=== PATIENT | male | born 1955 | race African-American/Black ===

== ENCOUNTER 2018-09-27 06:54 | Day surgery (SDC) | payer OTHER ==
--- OUTSIDE RECORDS SUMMARY | 2018-09-27 06:57 | XMS REPORT ---
:1955 Author Care Team Providers Name Role Phone HUSSEIN FORD MD Urologist [phone] LARA JOE MD Cotton Ginner Helper [phone] Allergies Code Code System Name Reaction Severity Status Onset NKDA Medications Name Status Start Date Stop Date atenolol 50 mg-chlorthalidone 25 mg tablet Active Not available TAKE 1 TABLET BY MOUTH ONCE A DAY atorvastatin 20 mg tablet Active Not available TAKE 1 TABLET BY MOUTH EVERY DAY Cialis 10 mg tablet Completed 11/10/2016 Cialis 20 mg tablet Active Not available Take 1 tablet every day by oral route. duloxetine 60 mg capsule,delayed release Active Not available TAKE ONE CAPSULE BY MOUTH EVERY DAY esomeprazole magnesium 40 mg capsule,delayed release Active Not available one capsule twice daily fluticasone 50 mcg/actuation nasal spray,suspension Active Not available 2 sprays each nosrtil once daily prn glimepiride 2 mg tablet Active Not available TAKE 1 TABLET TWICE A DAY hydrocortisone 2.5 % topical ointment Active Not available apply daily as needed Kenalog 40 mg/mL suspension for injection Completed 01/07/2018 Take 40 mg as needed by injection route as needed for 1 day. lisinopril 20 mg tablet Active Not available TAKE 1 TABLET TWICE A DAY meloxicam 15 mg tablet Active Not available metformin 500 mg tablet Active Not available TAKE 1 TABLET TWICE A DAY quetiapine 25 mg tablet Active Not available TAKE 1 TABLET EVERY DAY NEEDED ranitidine 150 mg tablet Active Not available TAKE 1 TABLET BY MOUTH EVERY DAY Restasis 0.05 % eye drops in a dropperette Active Not available 1 drop each eye twice a day Problems Name Status Onset Date Source Type 2 Diabetes Mellitus Active 07/18/2016 Hyperlipidemia Active 07/18/2016 Major Depressive Disorder Active 07/18/2016 Hypertensive Disorder Active 07/18/2016 Gastroesophageal Reflux Disease Active 07/18/2016 Primary Erectile Dysfunction Active 07/18/2016 Procedures Date Name Performed by 10/19/1996 Back Surgery Information not available Colonoscopy Information not available Notes: 1 year ago approximately. 11/10/2016 Electrocardiogram [facility] [address] [place] [address] (Work Place) Lab Results Date Name Specimen Result Interpretation Description Value Range Status Address 09/04/2017 CMP, Serum or Alt 26 U/L 0-55 [place] Plasma U/L Family Practice Laboratory: [address] [place] [address], [place] Ast 22 U/L 5-34 [place] U/L Family Practice Laboratory: [address] [place] [address], [place] Bun 11.5 8.4-2 [place] mg/dL 5.7 Family mg/dL Practice Laboratory: [address] [place] [address], [place] Alk Phos 70 40-15 [place] unit/L 0 Family unit/ Practice L Laboratory: [address] High Glucose 212 70-99 [place] mg/dL mg/dL Family Practice Laboratory: [address] Albumin 4.0 3.5-5 [place] g/dL .0 Family g/dL Practice Laboratory: [address] Creatinine 1.07 0.72- [place] mg/dL 1.25 Family mg/dL Practice Laboratory: [address] eGFR >60 >60 [place] Non- mL/min mL/mi Family Somali /1.73m n/1.7 Practice 2 3m2 Laboratory: [address] Total 0.5 0.2-1 [place] Bilirubin mg/dL .2 Family mg/dL Practice Laboratory: [address] eGFR - >60 >60 [facility] [place] Somali mL/min mL/mi Family /1.73m n/1.7 Practice 2 3m2 Laboratory: [address] Sodium 137 136-1 [place] mEq/L 45 Family mEq/L Practice Laboratory: [address] Potassium 3.8 3.5-5 [place] mEq/L .1 Family mEq/L [facility] [address] [facility] [facility] Chloride 101 98-10 [place] mmol/L 7 Family mmol/ Practice L Laboratory: [address] Total Protein 7.3 6.4-8 [place] g/dL .3 Family g/dL Practice Laboratory: [address] Calcium 9.5 8.8-1 [place] mg/dL 0.0 Family mg/dL Practice Laboratory: [address] [place] [address], [place] Co2 25.9 23.0- [place] mmol/L 31.0 Family mmol/ Practice L Laboratory: [address] Anion Gap 10 [place] calc Family Practice Laboratory: [address] 09/04/2017 Lipid Panel, Serum Hdl 49 40-60 [place] mg/dL mg/dL Family Practice Laboratory: [address] Triglyceride 106 0-149 [place] mg/dL mg/dL Family Practice Laboratory: [address] VLDL Calc. 21 [place] mg/dL Family Practice Laboratory: [address] cholesterol/HD 3.8 [place] L Ratio mg/dL [facility] [address] non-HDL 137 0-160 [place] Cholesterol mg/dL mg/dL Family Calc. Practice Laboratory: [address] Cholesterol 186 0-199 [place] mg/dL mg/dL Family Practice Laboratory: [address] LDL Calc. 116 0-130 [place] mg/dL mg/dL [facility] [address] 09/04/2017 HbA1C (Hemoglobin High A1C W/eag 7.2 % 1.0-5 [place] a1C), Blood .7 % Family Practice Laboratory: [address] Average Blood 160 [facility] [place] Glucose mg/dL [facility]: [facility] [address] 11/10/2016 CMP, Serum or Alt 27 U/L 0-55 [facility] [place] Plasma U/L [facility]: [facility] [address] Ast 22 U/L 5-34 [place] U/L Family Practice Laboratory: [address] Bun 14 8-26 [place] mg/dL mg/dL Family Practice Laboratory: [address] Alk Phos 95 40-15 [place] unit/L 0 Family unit/ Practice L Laboratory: [address] High Glucose 138 70-99 [place] mg/dL mg/dL Family Practice Laboratory: [address] Albumin 4.4 3.5-5 [place] g/dL .0 Family g/dL Practice Laboratory: [address] [facility] Creatinine 1.17 0.72- [place] mg/dL 1.25 Family mg/dL Practice Laboratory: [address] eGFR >60 >60 [place] Non- mL/min mL/mi Family Somali /1.73m n/1.7 Practice 2 3m2 Laboratory: [address] Total 0.6 0.2-1 [place] Bilirubin mg/dL .2 Family mg/dL Practice Laboratory: [address] eGFR - >60 >60 [place] Somali mL/min mL/mi Family /1.73m n/1.7 Practice 2 3m2 Laboratory: [address] Young [address] [place] [address] Sodium 140 137-1 [place] mEq/L 44 Family mEq/L Practice Laboratory: [address] Potassium 3.8 3.5-5 [place] mEq/L .0 Family mEq/L Practice Laboratory: [address] Chloride 102 101-1 [place] mmol/L 10 Family mmol/ Practice L Laboratory: [address] Total Protein 7.9 6.4-8 [place] g/dL .3 Family g/dL Practice Laboratory: [address] Calcium 10.2 8.4-1 [place] mg/dL 0.2 Family mg/dL Practice Laboratory: [address] Co2 27 22-31 [place] mmol/L mmol/ Family L Practice Laboratory: [address] Anion Gap 11 [place] calc Family Practice Laboratory: [address] [place] 11/10/2016 Lipid Panel, Serum Hdl 44 40-60 [place] mg/dL mg/dL Family Practice Laboratory: [address] Triglyceride 143 0-149 [place] mg/dL mg/dL Family Practice Laboratory: [address] VLDL Calc. 29 [place] mg/dL Family Practice Laboratory: [address] cholesterol/HD 3 Final [place] L Ratio mg/dL [facility] Laboratory: [address] non-HDL 104 0-160 [place] Cholesterol mg/dL mg/dL Family Calc. Practice Laboratory: [address] Cholesterol 148 0-199 [place] mg/dL mg/dL [facility] Laboratory: [address] LDL Calc. 75 0-130 [place] mg/dL mg/dL [facility] Laboratory: [address] [place] [address], [place] 11/10/2016 HbA1C (Hemoglobin High A1C W/eag 6.7 % 1.0-5 [place] a1C), Blood .7 % [facility] Laboratory: [address] Average Blood 146 Final [facility] Glucose mg/dL [facility] Laboratory: [address] 05/07/2016 Lipid Panel, Serum No observation recorded. 12/14/2015 Lipid Panel, Serum No observation recorded. 07/25/2015 Lipid Panel, Serum No observation recorded. Albumin:creatinine Type Urine 10 [facility] Ratio, Urine Microlalbumin mg/L : [address] [place] [address] Type Urine 50 [facility] Creatinine mg/dL : [address] [place] [address] Type A:C Ratio <30 [facility] mg/g : [facility] ([facility], [facility]) [place] Glucose, Blood Glucose: 135 [facility] Fingerstick, Blood mg/dl : [address] [place] [address] Electrocardiogram No observation [facility] recorded. : [address] [place] [address] Past Encounters 01/07/2018 Gastroesophageal Reflux Disease; Major Depressive Disorder; Hypertensive Disorder; Type 2 Diabetes Mellitus; Hyperlipidemia; Primary Erectile Dysfunction ; Body Mass Index 25-29 - Overweight Moreno Borrero MD: [address] [place] [phone], Ph. 09/04/2017 Type 2 Diabetes Mellitus; Hypertensive Disorder; Major Depressive Disorder; Hyperlipidemia; Primary Erectile Dysfunction; Acid Reflux; Body Mass Index 30+ - Obesity; Dry Eyes; Acute Dermatitis; Seasonal Allergic Rhinitis Moreno Borrero MD: [address] [place] [phone], Ph. 08/31/2017 Influenza Vaccination Xander Rodriguez MD: [address] [place] [phone], Ph. 02/05/2017 Type 2 Diabetes Mellitus without Complication; Benign Essential Hypertension; Major Depressive Disorder; Mixed Hyperlipidemia; Acid Reflux; Allergic Rhinitis Xander Rodriguez MD: [address] [place] [phone], Ph. [phone] 11/10/2016 Major Depressive Disorder; Benign Essential Hypertension; Acid Reflux; Type 2 Diabetes Mellitus without Complication; Mixed Hyperlipidemia; Electrocardiogram Abnormal; Primary Erectile Dysfunction Xander Rodriguez MD: [address] [place] [phone], Ph. 09/03/2016 Benign Essential Hypertension; Major Depressive Disorder; Primary Erectile Dysfunction Xander Rodriguez MD: [address] [place] [phone], Ph. 07/18/2016 Influenza Vaccination; Benign Essential Hypertension; Allergic Rhinitis Xander Rodriguez MD: [address] [place] [phone], Ph. [phone] Social History Smoking Status Never Smoker Vaccine List Vaccine Type Influenza, injectable, MDCK, quadrivalent 08/31/20170.5 mL influenza, seasonal, injectable 07/18/20160.5 mL Notes: decline's all vaccine's-01/07/2018-roxanna Plan of Care Patient Instructions continmue all meds /diet /exercise continue all meds<wgt >exercise Reminders Provider Appointments None recorded. Lab None recorded. Referral None recorded. Procedures None recorded. Surgeries None recorded. Imaging None recorded. Vitals 01/07/2018 02:15PM Est Patient Height Weight BMI Blood Pressure 5 ft 10 in 206 lbs 29.6 kg/m2 118/82 mm[Hg] 09/04/2017 12:45PM Est Patient Height Weight BMI Blood Pressure 5 ft 10 in 220 lbs 31.6 kg/m2 (1) 162/90 mm[Hg] (2) 160/82 mm[Hg] 02/05/2017 11:15AM Est Patient Height Weight BMI Blood Pressure 5 ft 10 in 214 lbs 30.7 kg/m2 138/89 mm[Hg] 11/10/2016 02:30PM Est Patient Height Weight BMI Blood Pressure 5 ft 10 in 216 lbs 31 kg/m2 (1) 145/88 mm[Hg] (2) 133/87 mm[Hg] 09/03/2016 11:00AM Est Patient Height Weight BMI Blood Pressure 5 ft 10 in 218 lbs 31.3 kg/m2 129/81 mm[Hg] 07/18/2016 01:45PM Nurse Visit Height Weight BMI Blood Pressure 5 ft 10 in 224 lbs 32.1 kg/m2 (1) 172/103 mm[Hg] (2) 169/104 mm[Hg]
[2018-09-27] MEDS ORDERED: LIDOCAINE 2% MPF 5 ML VIAL ONE ×2 (07:23→08:14)
[2018-09-27] MEDS ORDERED: CYCLOPENTOLATE 1% OPTH 2 ML ONE (07:23)
[2018-09-27] MEDS ORDERED: TETRACAINE HCL 0.5% 2ML OPTH ONE (07:24)
[2018-09-27] MEDS ORDERED: NA CHLORIDE 0.9% 500 ML ONE (07:24)
[2018-09-27] MEDS ORDERED: BUPIVACAINE 0.25% PF 10 ML VIAL ONE (07:24)
[2018-09-27] MEDS ORDERED: PHENYLEPHRINE 10% OPTH 5ML ONE (07:25)
[2018-09-27] MEDS ORDERED: PROPOFOL 200 MG/20 ML VIAL IV ONE (08:14)
[2018-09-27] MEDS ORDERED: NS 0.9% VIAL 10 ML ONE (08:19)
[2018-09-27] MEDS: MOXIFLOXACIN HCL 10 DROPS/ML **OR USE OPTH ONE ×2 (08:26→08:34)
[2018-09-27] MEDS: DUOVISC 1 KIT OPTH ONE ×2 (08:26→08:34)
[2018-09-27] MEDS: BALANCED SALT IRRIG PLAIN 500 ML BTL IRR ONE ×2 (08:26→08:34)
[2018-09-27] MEDS: EPINEPHRINE/PF 1 MG/ML AMP ONE ×2 (08:26→08:34)
[2018-09-27] MEDS ORDERED: FENTANYL CITR 100 MCG/2 ML ONE (08:49)
--- NOTE | 2018-09-27 09:08 | P.BOP ---
Preoperative diagnosis: Nuclear sclerotic and cortical cataract OS Postoperative diagnosis: Same Primary procedure: Phacoemulsification with IOL OS Estimated blood loss: None Anesthesia: Local (Subtenon's infusion with anesthesia for cataract surgery) Complications: None Implants: [id number] +17.0 Transferred to: Other (Day surgery) Condition: Good
--- NOTE | 2018-09-27 20:14 | OP ---
Surgeon: Chayo Rooney MD Anesthesiologist: Tiana Hahn CRNA Preoperative Diagnosis: Nuclear sclerotic cataract and cortical cataract, left eye. Operation Performed: Phacoemulsification with intraocular lens implant, left eye. Anesthesia: Per cataract surgery. Complications: None. Description Of Procedure: In day surgery, the patient was prepped with Betadine and draped. A conju nctival incision was made in the inferior nasal quadrant with Emil scissors. A sub-Tenon block c onsisting of a 1:1 mixture of 2% Xylocaine and 0.25% bupivacaine was placed through the conjunctival incision with a blunt cannula. A Honan balloon was placed over the eye and the patient was transferr ed to the operating room. In the operating room the patient was prepped and draped in the usual sterile fashion for ophthalmic surgery. A lid speculum was placed in the left eye. Two paracentesis sites were made superiorly and inferiorly in the limbal cornea. Viscoat was placed in the anterior chamber and a crescent blade wa s used to make a corneal groove and tunnel, and a keratome was used to enter the anterior chamber. P rovisc was placed in the anterior chamber and a 360 degree capsulotomy was performed with a cystitome . The lens was hydrodissected with BSS and rotated freely. The lens was removed with a stop and cho p technique. A 3.71 phaco CDE was used to remove the lens. Residual cortex was removed with the irr igation and aspiration. Provisc was placed in the capsular bag. A ZCB00 +17.0 lens was placed in th e capsular bag without complications. Irrigation and aspiration were used to remove residual viscoel astic. The paracentesis sites were hydrated with BSS. The wound and paracentesis sites were inspect ed and found to be watertight. Vigamox 0.07 cc was placed intracamerally at the end of the procedure . The eye was irrigated with balanced salt solution. The eye was patched with a soft cotton patch a nd Lindsay metal shield. The patient was returned to day surgery in good condition. Comments: Discharge Instructions: Mr. Paulosn is discharged to home in good condition and is to follow up with Dr. Rooney in the morning. CHRIS/NOBLE Voice ID: [id number] Report ID: [id number]
== END 2018-09-27 09:39 | disposition home or self-care (01) ==
LOC: OR 06:54
PROVIDERS: ATTEND Ophthalmology Retina Specialist
PROC: 08RK3JZ Replacement of Left Lens with Synthetic Substitute, Percutaneous Approach (ICD-10-PCS; principal; 2018-09-27 08:30)
DX: H25.12 Age-related nuclear cataract, left eye (principal); H25.012 Cortical age-related cataract, left eye; E11.36 Type 2 diabetes mellitus with diabetic cataract; H04.123 Dry eye syndrome of bilateral lacrimal glands; H52.203 Unspecified astigmatism, bilateral; I10 Essential (primary) hypertension; E78.00 Pure hypercholesterolemia, unspecified; Z79.84 Long term (current) use of oral hypoglycemic drugs; Z79.899 Other long term (current) drug therapy
CPT/HCPCS: 82962; J0171; J2704; J3010

== ENCOUNTER 2018-11-08 08:05 | Day surgery (SDC) | payer OTHER ==
[2018-11-08] MEDS ORDERED: LIDOCAINE 2% MPF 5 ML VIAL ONE ×2 (09:14→09:38)
[2018-11-08] MEDS ORDERED: TETRACAINE HCL 0.5% 2ML OPTH ONE (09:14)
[2018-11-08] MEDS ORDERED: BUPIVACAINE 0.25% PF 10 ML VIAL ONE (09:14)
[2018-11-08] MEDS ORDERED: DUOVISC 1 KIT OPTH ONE (09:23)
[2018-11-08] MEDS ORDERED: MOXIFLOXACIN HCL 10 DROPS/ML **OR USE OPTH ONE (09:23)
[2018-11-08] MEDS ORDERED: EPINEPHRINE/PF 1 MG/ML AMP ONE (09:23)
[2018-11-08] MEDS ORDERED: BALANCED SALT IRRIG PLAIN 500 ML BTL IRR ONE (09:23)
[2018-11-08] MEDS ORDERED: NS 0.9% VIAL 10 ML ONE (09:23)
[2018-11-08] MEDS: PHENYLEPHRINE 10% OPTH 5ML ONE ×3 (09:25→09:35)
[2018-11-08] MEDS: CYCLOPENTOLATE 1% OPTH 2 ML ONE ×3 (09:25→09:35)
[2018-11-08] MEDS ORDERED: NA CHLORIDE 0.9% 500 ML ONE (09:27)
[2018-11-08] MEDS ORDERED: PROPOFOL 200 MG/20 ML VIAL IV ONE (09:38)
--- NOTE | 2018-11-08 10:54 | P.BOP ---
Preoperative diagnosis: Nuclear sclerotic and cortical cataract with regular astimatism OD Postoperative diagnosis: Same Primary procedure: Phacoemulsification with IOL and limbal relaxing incision OD Estimated blood loss: None Anesthesia: Local (Subtenon's infusion with anesthesia for cataract surgery) Complications: None Implants: ZCB00 +17.5 Transferred to: Other (Day surgery) Condition: Good
--- NOTE | 2018-11-08 22:10 | OP ---
Date of Procedure: 11/08/2018 Surgeon: Chayo Rooney MD Anesthesiologist: Mikayla Macias CRNA and Dr. Simpson. Preoperative Diagnoses: Nuclear sclerotic and cortical cataract, OD (right eye ) and regular astigmatism, OD (right eye). Operation Performed: Phacoemulsification with intraocular lens implant, right eye with a limbal relaxing incision, right eye. Anesthesia: Per cataract surgery. Complications: None. Description Of Procedure: In day surgery, the patient was prepped with Betadine and draped. A conjunctival incision was made in the inferior nasal quadrant with Emil scissors. A sub-Tenon block consisting of a 1:1 mixture of 2% Xylocaine and 0.25% bupivacaine was placed through the conjunctival incision with a blunt cannula. A Honan balloon was placed over the eye and the patient was transferred to the operating room. In the operating room, the patient was prepped and draped in the usual sterile fashion for ophthalmic surgery. A lid speculum was placed in the right eye. Two paracentesis sites were made superiorly and inferiorly in the limbal cornea. Viscoat was placed in the anterior chamber and a crescent blade was used to make a corneal groove and tunnel, and a keratome was used to enter the anterior chamber. Provisc was placed in the anterior chamber and a 360-degree capsulotomy was performed with a cystitome. The lens was hydrodissected with BSS and rotated freely. The lens was removed with a stop and chop technique. A 3.03 phaco CDE was used to remove the lens. Residual cortex was removed with the irrigation and aspiration. Provisc was placed in the capsular bag. A ZCB00 +17.5 lens was placed in the capsular bag without complications. Irrigation and aspiration were used to remove residual viscoelastic. The paracentesis sites were hydrated with BSS. The wound and paracentesis sites were inspected and found to be watertight. Vigamox 0.07 cc was placed intracamerally at the end of the procedure. The eye was irrigated with balanced salt solution. The eye was patched with a soft cotton patch and Lindsay metal shield. The patient was returned to day surgery in good condition. Comments: A limbal relaxing incision was created at 103 degrees. Two 35- degree arcs were created with the 550-micron blade. Discharge Instructions: Mr. Paulson is discharged to home in good condition and is to follow up with Dr. Rooney in the morning. CHRIS/NOBLE Voice ID: [id number] Report ID: [id number] [id number]
== END 2018-11-08 11:33 | disposition home or self-care (01) ==
LOC: OR 08:05
PROVIDERS: ATTEND Ophthalmology Retina Specialist
PROC: 089 Eye, Drainage (ICD-10-PCS; 2018-11-08)
PROC: 08RJ3JZ Replacement of Right Lens with Synthetic Substitute, Percutaneous Approach (ICD-10-PCS; principal; 2018-11-08 09:50)
DX: H25.11 Age-related nuclear cataract, right eye (principal); H25.011 Cortical age-related cataract, right eye; H52.221 Regular astigmatism, right eye; E11.9 Type 2 diabetes mellitus without complications; I10 Essential (primary) hypertension; E78.00 Pure hypercholesterolemia, unspecified
CPT/HCPCS: 82962; J0171; J2704

== ENCOUNTER 2025-02-28 18:02 | Emergency (ER) | payer OTHER ==
--- OUTSIDE RECORDS SUMMARY | 2025-02-28 18:06 | XMS REPORT | Continuity of Care Document ---
Author Name Unknown Address [address] [place] [address] [facility] Address [address] [place] [address] [address] [place] [address] Care Team Providers Care Business Division Chair Name Role Phone Gilbert_L_HOU_DO Attending Clinician Unavailable PANDYA_A Attending Clinician Unavailable GILBERT_L_WAGDNU Attending Clinician Unavailable Bernstein_H Attending Clinician Unavailable Bernstein_H_WAG Attending Clinician Unavailable Gilbert_L_HOU_DO Admitting Clinician Unavailable PANDYA_A Admitting Clinician Unavailable GILBERT_L_WAGDNU Admitting Clinician Unavailable Bernstein_H Admitting Clinician Unavailable Bernstein_H_WAG Admitting Clinician Unavailable Payers Payer Name Policy Type Policy Number Effective Date Expirati on Date Source [employer] - CHOICE (POS II) [id number] 2010 00:00:00 [facility] - AET[employer] (POS II) [id number] 2021 00:00:00 [employer] [id number] 2021 00:00:00 Problems Condition Name Condition Details Condition Category Status Onset Date Resolution Date Last Treatment Date Treating Clinician Comments Source Neck pain Neck Pain Problem Active 2- 00:00: 00 [facility] Muscle spasm of cervical muscle of neck Muscle Spasm of Cervical Muscle of Neck Problem Active 2- 00:00: 00 [facility] Chronic kidney disease stage 3A Chronic Kidney Disease Stage 3a Problem Active 2- 00:00: 00 [facility] COVID-19 Covid-19 Problem Active 2022-10 0-03 00:00: 00 [facility] Prostate specific antigen above reference range Prostate Specific Antigen above Reference Range Problem Active 7- 00:00: 00 [facility] Peripheral vascular disease Peripheral Vascular Disease Problem Active 02-14 00:00: 00 [facility] Candidal balanitis Candidal Balanitis Problem Active 10-31 00:00: 00 [facility] Body mass index 25-29 - overweight Body Mass Index 25-29 - Overweight Problem Active 10-31 00:00: 00 [facility] Paronychia of finger Paronychia of Finger Problem Active 10-31 00:00: 00 [facility] Hyperlipid emia due to type 2 diabetes mellitus Hyperlipid emia Due to Type 2 Diabetes Mellitus Problem Active 10-31 00:00: 00 [facility] Moderate major depression Moderate Major Depression Problem Active 11-13 00:00: 00 [facility] Chronic kidney disease stage 3 Chronic Kidney Disease Stage 3 Problem Active 11-13 00:00: 00 [facility] Type 2 diabetes mellitus Type 2 Diabetes Mellitus Problem Active 07-18 00:00: 00 [facility] Hyperlipid emia Hyperlipid emia Problem Active 07-18 00:00: 00 [facility] Major depressive disorder Major Depressive Disorder Problem Active 07-18 00:00: 00 [facility] Hypertensi ve disorder Hypertensi ve Disorder Problem Active 07-18 00:00: 00 [facility] Gastroesop hageal reflux disease Gastroesop hageal Reflux Disease Problem Active 07-18 00:00: 00 [facility] Primary erectile dysfunctio n Primary Erectile Dysfunctio n Problem Active 07-18 00:00: 00 [facility] Social History Smoking Status Start Date Stop Date Source Never Smoker [facility] Medications Ordered Medication Name Filled Medication Name Start Date Stop Date Current Medication? Ordering Clinician Indication Dosage Frequency Signature (SIG) Comments Components Source Accu-Chek Guide Glucose Meter USE ONCE DAILY DIRECTED Accu-Chek Guide Glucose Meter USE ONCE DAILY DIRECTED No Accu-Chek Guide Glucose Meter USE ONCE DAILY DIRECTED [facility] Accu-Chek Guide test strips USE ONCE DAILY DIRECTED Accu-Chek Guide test strips USE ONCE DAILY DIRECTED No Accu-Chek Guide test strips USE ONCE DAILY DIRECTED [facility] Accu-Chek Softclix Lancets USE ONCE DAILY DIRECTED Accu-Chek Softclix Lancets USE ONCE DAILY DIRECTED No Accu-Chek Softclix Lancets USE ONCE DAILY DIRECTED [facility] amlodipine 5 mg tablet Take 1 tablet every day by oral route. amlodipine 5 mg tablet Take 1 tablet every day by oral route. No 1 Q1D amlodipine 5 mg tablet Take 1 tablet every day by oral route. [facility] atenolol 50 mg-chlortha lidone 25 mg tablet Take 1 tablet every day by oral route. atenolol 50 mg-chlortha lidone 25 mg tablet Take 1 tablet every day by oral route. No 1 Q1D atenolol 50 mg-chlorth alidone 25 mg tablet Take 1 tablet every day by oral route. [facility] atorvastati n 20 mg tablet Take 1 tablet every day by oral route for 90 days. atorvastati n 20 mg tablet Take 1 tablet every day by oral route for 90 days. No 1 Q1D atorvastat in 20 mg tablet Take 1 tablet every day by oral route for 90 days. [facility] clotrimazol e-betametha sone 1 %-0.05 % topical cream APPLY TO AFFECTED AREA TWICE A DAY FOR 2 WEEKS IN THE MORNING AND EVENING (AND SURROUNDING AREAS) clotrimazol e-betametha sone 1 %-0.05 % topical cream APPLY TO AFFECTED AREA TWICE A DAY FOR 2 WEEKS IN THE MORNING AND EVENING (AND SURROUNDING AREAS) No clotrimazo le-betamet hasone 1 %-0.05 % topical cream APPLY TO AFFECTED AREA TWICE A DAY FOR 2 WEEKS IN THE MORNING AND EVENING (AND SURROUNDIN G AREAS) [facility] duloxetine 60 mg capsule,del ayed release TAKE 1 CAPSULE BY MOUTH ONCE A DAY duloxetine 60 mg capsule,del ayed release TAKE 1 CAPSULE BY MOUTH ONCE A DAY No duloxetine 60 mg capsule,de layed release TAKE 1 CAPSULE BY MOUTH ONCE A DAY [facility] Farxiga 10 mg tablet Take 1 tablet every day by oral route in the morning for 30 days. Farxiga 10 mg tablet Take 1 tablet every day by oral route in the morning for 30 days. No 1 Q1D Farxiga 10 mg tablet Take 1 tablet every day by oral route in the morning for 30 days. [facility] glimepiride 2 mg tablet TAKE ONE TABLET BY MOUTH TWICE A DAY glimepiride 2 mg tablet TAKE ONE TABLET BY MOUTH TWICE A DAY No glimepirid e 2 mg tablet TAKE ONE TABLET BY MOUTH TWICE A DAY [facility] hydrocortis one 2.5 % topical ointment APPLY TO AFFECTED AREA(S) ONCE DAILY NEEDED hydrocortis one 2.5 % topical ointment APPLY TO AFFECTED AREA(S) ONCE DAILY NEEDED No hydrocorti sone 2.5 % topical ointment APPLY TO AFFECTED AREA(S) ONCE DAILY NEEDED [facility] lisinopril 40 mg tablet Take 1 tablet every day by oral route for 30 days. lisinopril 40 mg tablet Take 1 tablet every day by oral route for 30 days. No 1 Q1D lisinopril 40 mg tablet Take 1 tablet every day by oral route for 30 days. [facility] metformin 1,000 mg tablet Take 1 tablet twice a day by oral route for 90 days. metformin 1,000 mg tablet Take 1 tablet twice a day by oral route for 90 days. No 1 BID metformin 1,000 mg tablet Take 1 tablet twice a day by oral route for 90 days. [facility] methocarbam ol 750 mg tablet TAKE 1 TABLET BY MOUTH TWICE A DAY NEEEDED methocarbam ol 750 mg tablet TAKE 1 TABLET BY MOUTH TWICE A DAY NEEEDED No methocarba mol 750 mg tablet TAKE 1 TABLET BY MOUTH TWICE A DAY NEEEDED [facility] Nexium 40 mg capsule,del ayed release TAKE 1 CAPSULE BY MOUTH EVERY DAY Nexium 40 mg capsule,del ayed release TAKE 1 CAPSULE BY MOUTH EVERY DAY No Nexium 40 mg capsule,de layed release TAKE 1 CAPSULE BY MOUTH EVERY DAY [facility] quetiapine 25 mg tablet Take 1 tablet every day by oral route for 30 days. quetiapine 25 mg tablet Take 1 tablet every day by oral route for 30 days. No 1 Q1D quetiapine 25 mg tablet Take 1 tablet every day by oral route for 30 days. [facility] Restasis 0.05 % eye drops in a dropperette use as needed Restasis 0.05 % eye drops in a dropperette use as needed No Restasis 0.05 % eye drops in a dropperett e use as needed [facility] sodium fluoride 1.1 %-potassium nitrate 5 % dental paste BRUSH AT BEDTIME,SPI T OUT EXCESS,DO NOT RINSE sodium fluoride 1.1 %-potassium nitrate 5 % dental paste BRUSH AT BEDTIME,SPI T OUT EXCESS,DO NOT RINSE No sodium fluoride 1.1 %-potassiu m nitrate 5 % dental paste BRUSH AT BEDTIME,SP IT OUT EXCESS,DO NOT RINSE [facility] e tadalafil 10 mg tablet Take 1 tablet every day by oral route for 90 days. tadalafil 10 mg tablet Take 1 tablet every day by oral route for 90 days. No 1 Q1D tadalafil 10 mg tablet Take 1 tablet every day by oral route for 90 days. [facility] e blood pressure test kit-large cuff USE DIRECTED. blood pressure test kit-large cuff USE DIRECTED. No blood pressure test kit-large cuff USE DIRECTED. [facility] Immunizations Ordered Immunization Name Filled Immunization Name Date Status Comments Source Pneumococcal conjugate PCV20, polysaccharide [id number] conjugate, adjuvant, PF Pneumococcal conjugate PCV20, polysaccharide [id number] conjugate, adjuvant, PF Unknown Completed [facility] influenza, high dose seasonal influenza, high dose seasonal Unknown Completed [facility] Tdap Tdap Unknown Completed [facility] zoster recombinant zoster recombinant Unknown Completed [facility] pneumococcal polysaccharide PPV23 pneumococcal polysaccharide PPV23 Unknown Completed [facility] influenza, injectable, quadrivalent, preservative free influenza, injectable, quadrivalent, preservative free Unknown Completed [facility] Influenza, injectable, MDCK, quadrivalent Influenza, injectable, MDCK, quadrivalent Unknown Completed [facility] influenza, seasonal, injectable influenza, seasonal, injectable Unknown Completed [facility] RSV, recombinant, protein subunit RSVpreF, adjuvant reconstituted, 0.5 mL, PF RSV, recombinant, protein subunit RSVpreF, adjuvant reconstituted, 0.5 mL, PF Unknown Completed [facility] COVID-19, mRNA, LNP-S, PF, 30 mcg/0.3 mL dose, pricila-sucrose ([employer]) COVID-19, mRNA, LNP-S, PF, 30 mcg/0.3 mL dose, pricila-sucrose ([employer]) Unknown Completed [facility] influenza, high-dose, quadrivalent influenza, high-dose, quadrivalent Unknown Completed [facility] COVID-19, mRNA, LNP-S, bivalent booster, PF, 30 mcg/0.3 mL dose (Pfizer-BioNTech) COVID-19, mRNA, LNP-S, bivalent booster, PF, 30 mcg/0.3 mL dose (Pfizer-BioNTech) Unknown Completed [facility] COVID-19, mRNA, LNP-S, PF, 30 mcg/0.3 mL dose (Pfizer-BioNTech) COVID-19, mRNA, LNP-S, PF, 30 mcg/0.3 mL dose (Pfizer-BioNTech) Unknown Completed [facility] COVID-19, mRNA, LNP-S, PF, 100 mcg/0.5 mL dose (Moderna) COVID-19, mRNA, LNP-S, PF, 100 mcg/0.5 mL dose (Moderna) Unknown Completed [facility] COVID-19 (SARS-COV-2) vaccine, unspecified COVID-19 (SARS-COV-2) vaccine, unspecified Unknown Completed [facility] Vital Signs Vital Name Observation Time Observation Value Comments S ource BMI (Body Mass Index) 2025-02-01 00:00:00 29.1 kg/m2 [facility] Height 2025-02-01 00:00:00 70 [in_i] [facility] BP Diastolic 2025-02-01 00:00:00 79 mm[Hg] [facility] BP Systolic 2025-02-01 00:00:00 144 mm[Hg] [facility] Body Weight 2025-02-01 00:00:00 203 [lb_av] [facility] BP Diastolic 2024-08-17 00:00:00 80 mm[Hg] [facility] Height 2024-08-17 00:00:00 70 [in_i] [facility] BP Systolic 2024-08-17 00:00:00 130 mm[Hg] [facility] Body Weight 2024-08-17 00:00:00 203 [lb_av] [facility] BMI (Body Mass Index) 2024-08-17 00:00:00 29.1 kg/m2 [facility] BP Diastolic 2024-05-19 00:00:00 81 mm[Hg] [facility] BP Systolic 2024-05-19 00:00:00 116 mm[Hg] [facility] BMI (Body Mass Index) 2024-05-19 00:00:00 28.6 kg/m2 [facility] Body Weight 2024-05-19 00:00:00 199 [lb_av] [facility] Height 2024-05-19 00:00:00 70 [in_i] [facility] BP Systolic 2024-02-22 00:00:00 130 mm[Hg] [facility] Body Weight 2024-02-22 00:00:00 200 [lb_av] [facility] Height 2024-02-22 00:00:00 70 [in_i] [facility] BMI (Body Mass Index) 2024-02-22 00:00:00 28.7 kg/m2 [facility] BP Diastolic 2024-02-22 00:00:00 79 mm[Hg] [facility] BP Diastolic 2023-11-20 00:00:00 82 mm[Hg] [facility] Body Weight 2023-11-20 00:00:00 200.6 [lb_av[facility] Systolic 2023-11-20 00:00:00 145 mm[Hg] [facility] Height 2023-11-20 00:00:00 70 [in_i] [facility] BMI (Body Mass Index) 2023-11-20 00:00:00 28.8 kg/m2 [facility] BP Systolic 2023-08-17 00:00:00 136 mm[Hg] [facility] Height 2023-08-17 00:00:00 70 [in_i] [facility] Body Weight 2023-08-17 00:00:00 199 [lb_av] [facility] BP Diastolic 2023-08-17 00:00:00 85 mm[Hg] [facility] BMI (Body Mass Index) 2023-08-17 00:00:00 28.6 kg/m2 [facility] Body Weight 2023-07-21 00:00:00 185 [lb_av] [facility] BMI (Body Mass Index) 2023-07-21 00:00:00 26.5 kg/m2 [facility] Height 2023-07-21 00:00:00 70 [in_i] [facility] BP Diastolic 2023-05-18 00:00:00 73 mm[Hg] [facility] Height 2023-05-18 00:00:00 70 [in_i] [facility] BMI (Body Mass Index) 2023-05-18 00:00:00 29 kg/m2 [facility] BP Systolic 2023-05-18 00:00:00 120 mm[Hg] [facility] Body Weight 2023-05-18 00:00:00 201.8 [lb_av] [facility] BP Diastolic 2023-02-14 00:00:00 81 mm[Hg] [facility] Height 2023-02-14 00:00:00 70 [in_i] [facility] BMI (Body Mass Index) 2023-02-14 00:00:00 28.6 kg/m2 [facility] BP Systolic 2023-02-14 00:00:00 133 mm[Hg] [facility] Body Weight 2023-02-14 00:00:00 199 [lb_av] [facility] BP Diastolic 2022-11-05 00:00:00 77 mm[Hg] [facility] Height 2022-11-05 00:00:00 70 [in_i] [facility] BMI (Body Mass Index) 2022-11-05 00:00:00 29.1 kg/m2 [facility] BP Systolic 2022-11-05 00:00:00 134 mm[Hg] [facility] Body Weight 2022-11-05 00:00:00 203 [lb_av] [facility] BP Diastolic 2022-10-31 00:00:00 78 mm[Hg] [facility] Height 2022-10-31 00:00:00 70 [in_i] [facility] BMI (Body Mass Index) 2022-10-31 00:00:00 28.6 kg/m2 [facility] BP Systolic 2022-10-31 00:00:00 132 mm[Hg] [facility] Body Weight 2022-10-31 00:00:00 199.6 [lb_av] [facility] BP Diastolic 2022-08-12 00:00:00 77 mm[Hg] [facility] Height 2022-08-12 00:00:00 70 [in_i] [facility] BMI (Body Mass Index) 2022-08-12 00:00:00 29.1 kg/m2 [facility] BP Systolic 2022-08-12 00:00:00 134 mm[Hg] [facility] Body Weight 2022-08-12 00:00:00 202.8 [lb_av] [facility] BP Diastolic 2022-08-04 00:00:00 72 mm[Hg] [facility] Height 2022-08-04 00:00:00 70 [in_i] [facility] BMI (Body Mass Index) 2022-08-04 00:00:00 28.8 kg/m2 [facility] BP Systolic 2022-08-04 00:00:00 116 mm[Hg] [facility] Body Weight 2022-08-04 00:00:00 201 [lb_av] [facility] BP Diastolic 2022-06-02 00:00:00 80 mm[Hg] [facility] Height 2022-06-02 00:00:00 70 [in_i] [facility] BMI (Body Mass Index) 2022-06-02 00:00:00 29 kg/m2 [facility] BP Systolic 2022-06-02 00:00:00 124 mm[Hg] [facility] Body Weight 2022-06-02 00:00:00 202 [lb_av] [facility] BP Diastolic 2022-05-05 00:00:00 77 mm[Hg] [facility] Height 2022-05-05 00:00:00 70 [in_i] [facility] BMI (Body Mass Index) 2022-05-05 00:00:00 28.7 kg/m2 [facility] BP Systolic 2022-05-05 00:00:00 122 mm[Hg] [facility] Body Weight 2022-05-05 00:00:00 200 [lb_av] [facility] BP Diastolic 2021-11-13 00:00:00 77 mm[Hg] [facility] Height 2021-11-13 00:00:00 70 [in_i] [facility] BMI (Body Mass Index) 2021-11-13 00:00:00 29.3 kg/m2 [facility] BP Systolic 2021-11-13 00:00:00 136 mm[Hg] [facility] Body Weight 2021-11-13 00:00:00 204 [lb_av] [facility] BP Diastolic 2021-10-15 00:00:00 85 mm[Hg] [facility] Height 2021-10-15 00:00:00 70 [in_i] [facility] BP Systolic 2021-10-15 00:00:00 170 mm[Hg] [facility] BP Diastolic 2021-10-07 00:00:00 87 mm[Hg] [facility] Height 2021-10-07 00:00:00 70 [in_i] [facility] BMI (Body Mass Index) 2021-10-07 00:00:00 29.7 kg/m2 [facility] BP Systolic 2021-10-07 00:00:00 144 mm[Hg] [facility] Body Weight 2021-10-07 00:00:00 207 [lb_av] [facility] BP Diastolic 2021-04-08 00:00:00 83 mm[Hg] [facility] Height 2021-04-08 00:00:00 70 [in_i] [facility] BMI (Body Mass Index) 2021-04-08 00:00:00 29.7 kg/m2 [facility] BP Systolic 2021-04-08 00:00:00 149 mm[Hg] [facility] Body Weight 2021-04-08 00:00:00 206.8 [lb_av] [facility] Height 2021-04-02 00:00:00 70 [in_i] [facility] BMI (Body Mass Index) 2021-04-02 00:00:00 29.1 kg/m2 [facility] Body Weight 2021-04-02 00:00:00 203 [lb_av] [facility] BP Diastolic 2021-01-08 00:00:00 83 mm[Hg] [facility] Height 2021-01-08 00:00:00 70 [in_i] [facility] BMI (Body Mass Index) 2021-01-08 00:00:00 29.1 kg/m2 [facility] BP Systolic 2021-01-08 00:00:00 120 mm[Hg] [facility] Body Weight 2021-01-08 00:00:00 203 [lb_av] [facility] BP Diastolic 2020-07-26 00:00:00 77 mm[Hg] [facility] Height 2020-07-26 00:00:00 70 [in_i] [facility] BMI (Body Mass Index) 2020-07-26 00:00:00 29.6 kg/m2 [facility] BP Systolic 2020-07-26 00:00:00 142 mm[Hg] [facility] Body Weight 2020-07-26 00:00:00 206 [lb_av] [facility] BP Diastolic 2020-07-20 00:00:00 80 mm[Hg] [facility] Height 2020-07-20 00:00:00 70 [in_i] [facility] BP Systolic 2020-07-20 00:00:00 124 mm[Hg] [facility] BP Diastolic 2020-06-27 00:00:00 71 mm[Hg] [facility] Height 2020-06-27 00:00:00 70 [in_i] [facility] BP Systolic 2020-06-27 00:00:00 126 mm[Hg] [facility] Height 2020-03-01 00:00:00 70 [in_i] [facility] BP Diastolic 2019-09-22 00:00:00 84 mm[Hg] [facility] Height 2019-09-22 00:00:00 70 [in_i] [facility] BMI (Body Mass Index) 2019-09-22 00:00:00 30.4 kg/m2 [facility] BP Systolic 2019-09-22 00:00:00 158 mm[Hg] [facility] Body Weight 2019-09-22 00:00:00 212 [lb_av] [facility] BP Diastolic 2019-07-04 00:00:00 93 mm[Hg] [facility] Height 2019-07-04 00:00:00 70 [in_i] [facility] BMI (Body Mass Index) 2019-07-04 00:00:00 29.4 kg/m2 [facility] BP Systolic 2019-07-04 00:00:00 138 mm[Hg] [facility] Body Weight 2019-07-04 00:00:00 204.6 [lb_av] [facility] BP Diastolic 2019-05-26 00:00:00 80 mm[Hg] [facility] Height 2019-05-26 00:00:00 70 [in_i] [facility] BMI (Body Mass Index) 2019-05-26 00:00:00 29.7 kg/m2 [facility] BP Systolic 2019-05-26 00:00:00 128 mm[Hg] [facility] Body Weight 2019-05-26 00:00:00 207 [lb_av] [facility] BP Diastolic 2019-03-09 00:00:00 82 mm[Hg] [facility] Height 2019-03-09 00:00:00 70 [in_i] [facility] BMI (Body Mass Index) 2019-03-09 00:00:00 30.6 kg/m2 [facility] BP Systolic 2019-03-09 00:00:00 140 mm[Hg] [facility] Body Weight 2019-03-09 00:00:00 213.4 [lb_av] [facility] BP Diastolic 2018-01-07 00:00:00 82 mm[Hg] [facility] Height 2018-01-07 00:00:00 70 [in_i] [facility] BMI (Body Mass Index) 2018-01-07 00:00:00 29.6 kg/m2 [facility] BP Systolic 2018-01-07 00:00:00 118 mm[Hg] [facility] Body Weight 2018-01-07 00:00:00 206 [lb_av] [facility] BP Diastolic 2017-09-04 00:00:00 90 mm[Hg] [facility] Height 2017-09-04 00:00:00 70 [in_i] [facility] BMI (Body Mass Index) 2017-09-04 00:00:00 31.6 kg/m2 [facility] BP Systolic 2017-09-04 00:00:00 162 mm[Hg] [facility] Body Weight 2017-09-04 00:00:00 220 [lb_av] [facility] BP Diastolic 2017-02-05 00:00:00 89 mm[Hg] [facility] Height 2017-02-05 00:00:00 70 [in_i] [facility] BMI (Body Mass Index) 2017-02-05 00:00:00 30.7 kg/m2 [facility] BP Systolic 2017-02-05 00:00:00 138 mm[Hg] [facility] Body Weight 2017-02-05 00:00:00 214 [lb_av] [facility] BP Diastolic 2016-11-10 00:00:00 88 mm[Hg] [facility] Height 2016-11-10 00:00:00 70 [in_i] [facility] BMI (Body Mass Index) 2016-11-10 00:00:00 31 kg/m2 [facility] BP Systolic 2016-11-10 00:00:00 145 mm[Hg] [facility] Body Weight 2016-11-10 00:00:00 216 [lb_av] [facility] BP Diastolic 2016-09-03 00:00:00 81 mm[Hg] [facility] Height 2016-09-03 00:00:00 70 [in_i] [facility] BMI (Body Mass Index) 2016-09-03 00:00:00 31.3 kg/m2 [facility] BP Systolic 2016-09-03 00:00:00 129 mm[Hg] [facility] Body Weight 2016-09-03 00:00:00 218 [lb_av] [facility] BP Diastolic 2016-07-18 00:00:00 103 mm[Hg] [facility] Height 2016-07-18 00:00:00 70 [in_i] [facility] BMI (Body Mass Index) 2016-07-18 00:00:00 32.1 kg/m2 [facility] BP Systolic 2016-07-18 00:00:00 172 mm[Hg] [facility] Body Weight 2016-07-18 00:00:00 224 [lb_av] [facility] Procedures Procedure Date / Time Performed Performing Clinician Source X-RAY OF SHOULDER 2 VIEW 2023-08-17 00:00:00 [facility] Colonoscopy 2019-08-19 00:00:00 [facility] Egd 2019-08-19 00:00:00 [facility] Extraction of Cataract 2018-10-19 00:00:00 [facility] electrocardiogram 2016-11-10 00:00:00 [facility] Back Surgery 1996-10-19 00:00:00 [facility] Encounters Start Date/Time End Date/Time Encounter Type Admission Type Attending Clinicians Care Facility Care Department Encounter ID Source 2025-02-01 00:00:00 2025-02-01 00:00:00 Tala Pang MD: [address], [address], [place] [address] , Ph. [facility] - [place] [id number] [facility] 2024-08-17 00:00:00 2024-08-17 00:00:00 Tala Pang MD: [address], [address], [place] [address] , Ph. [facility] - [place] [id number] [facility] 2024-05-19 00:00:00 2024-05-19 00:00:00 Tala Pang MD: [address], [address], [place] [address] , Ph. [facility] [place] ([place] [id number] [facility] 2024-02-22 00:00:00 2024-02-22 00:00:00 Melody Allen NP: [address], [address], [place] [address] , Ph. [facility] - [place] [id number] [facility] 2024-01-14 00:00:00 2024-01-14 00:00:00 Outpatient Gilbert_L_H OU_DO VFP VFP [id number] [facility] 2024-01-07 00:00:00 2024-01-07 00:00:00 Outpatient PANDYA_A PANRSOH PANRSOH [id number] [facility] 2023-11-20 00:00:00 2023-11-20 00:00:00 Outpatient Gilbert_L_H OU_DO VFP VFP [id number] [facility] 2023-11-20 00:00:00 2023-11-20 00:00:00 Melody Allen, RAILROAD SIGNAL AND SWITCH OPERATOR: [address], [address] [address] , Ph. VFP [place] - [facility] - [place] ([place]) [id number] [facility] 2023-11-17 00:00:00 2023-11-17 00:00:00 Outpatient GILBERT_L_W AGDNU VFP VFP [id number] [facility] 2023-08-17 00:00:00 2023-08-17 00:00:00 Outpatient Gilbert_L_H OU_DO VFP VFP [id number] [facility] 2023-08-17 00:00:00 2023-08-17 00:00:00 Mahesh Jaquez, DO: [address], [address] [address] , Ph. VFP [place] - [facility] - [place] ([place] [id number] [facility] 2023-08-15 00:00:00 2023-08-15 00:00:00 Outpatient Gilbert_L_H OU_DO VFP VFP [id number] [facility] 2023-08-14 00:00:00 2023-08-14 00:00:00 Outpatient GILBERT_L_W AGDNU VFP VFP [id number] [facility] 2023-08-14 00:00:00 2023-08-14 00:00:00 Outpatient GILBERT_L_W AGDNU VFP VFP [id number] [facility] 2023-08-14 00:00:00 2023-08-14 00:00:00 Outpatient GILBERT_L_W AGDNU VFP VFP [id number] [facility] 2023-07-21 00:00:00 2023-07-21 00:00:00 Outpatient Gilbert_L_H OU_DO VFP VFP [id number] [facility] 2023-07-21 00:00:00 2023-07-21 00:00:00 Tala Pang MD: [address], [address] [address] , Ph. VFP [place] - [facility] - VM_SHAHLA_Hardy mccormick ([place]) [id number] [facility] 2023-06-25 00:00:00 2023-06-25 00:00:00 Outpatient PANDYA_A PANRSOH PANRSOH [id number] PAN[facility] 2023-05-18 00:00:00 2023-05-18 00:00:00 Outpatient Gilbert_L_H OU_DO VFP VFP [id number] [facility] 2023-05-18 00:00:00 2023-05-18 00:00:00 Mahesh Jaquez, DO: [address], [address], [place] [address] , Ph. VFP [place] - [facility] - [place] [id number] [facility] 2023-05-14 00:00:00 2023-05-14 00:00:00 Outpatient Gilbert_L_H OU_DO VFP VFP [id number] [facility] 2023-05-14 00:00:00 2023-05-14 00:00:00 Outpatient Gilbert_L_H OU_DO VFP VFP [id number] [facility] 2023-05-14 00:00:00 2023-05-14 00:00:00 Outpatient GILBERT_L_W AGDNU VFP VFP [id number] [facility] 2023-02-14 00:00:00 2023-02-14 00:00:00 Outpatient Gilbert_L VFP VFP [id number] [facility] 2023-02-14 00:00:00 2023-02-14 00:00:00 Lissa Mendez, RAILROAD SIGNAL AND SWITCH OPERATOR: [address] [facility], [address], [place] [address] , [place] [facility] [place] - _SHAHLA_Hardy mccormick (CARLOS MANUEL) [id number] [facility] 2023-02-11 00:00:00 2023-02-11 00:00:00 Outpatient Gilbert_L VFP VFP [id number] [facility] 2023-02-11 00:00:00 2023-02-11 00:00:00 Outpatient GILBERT_L_W AGDNU VFP VFP [id number] [facility] 2023-02-11 00:00:00 2023-02-11 00:00:00 Outpatient GILBERT_L_W AGDNU VFP VFP [id number] [facility] 2023-02-02 00:00:00 2023-02-02 00:00:00 Outpatient Gilbert_L VFP VFP [id number] [facility] 2023-01-23 00:00:00 2023-01-23 00:00:00 Outpatient GILBERT_L_W AGDNU VFP VFP [id number] [facility] 2022-11-20 00:00:00 2022-11-20 00:00:00 Outpatient Gilbert_L VFP VFP [id number] [facility] 2022-11-05 00:00:00 2022-11-05 00:00:00 Melody Allen, RAILROAD SIGNAL AND SWITCH OPERATOR: [address], [address], [place] [address] , Ph. VFP [place] - [facility] - [place] m[place] ([place]) [id number] [facility] 2022-10-31 00:00:00 2022-10-31 00:00:00 Outpatient Gilbert_L VFP VFP [id number] [facility] 2022-10-31 00:00:00 2022-10-31 00:00:00 Outpatient Gilbert_L VFP VFP [id number] [facility] 2022-10-31 00:00:00 2022-10-31 00:00:00 Outpatient Gilbert_L VFP VFP [id number] [facility] 2022-10-31 00:00:00 2022-10-31 00:00:00 Outpatient Gilbert_L VFP VFP [id number] [facility] 2022-10-31 00:00:00 2022-10-31 00:00:00 Melody Allen, RAILROAD SIGNAL AND SWITCH OPERATOR: [address], [address], [place] [address] , Ph. VFP [facility] - [place] - VM_Jay mccormick ([facility]) [id number] [facility] 2022-10-28 00:00:00 2022-10-28 00:00:00 Outpatient Gilbert_L VFP VFP [id number] [facility] 2022-10-28 00:00:00 2022-10-28 00:00:00 Outpatient Gilbert_L VFP VFP [id number] [facility] 2022-09-26 00:00:00 2022-09-26 00:00:00 Outpatient Gilbert_L VFP VFP [id number] [facility] 2022-09-26 00:00:00 2022-09-26 00:00:00 Outpatient Gilbert_L VFP VFP [id number] [facility] 2022-08-12 00:00:00 2022-08-12 00:00:00 Outpatient Gilbert_L VFP VFP [id number] [facility] 2022-08-12 00:00:00 2022-08-12 00:00:00 Mahesh Jaquez, DO: [address], [address] [address] , Ph. V[place] [facility] - [place] - [place]_SHAHLA_Hard[place] m[place]orm[place] ([place]) [id number] [facility] 2022-08-09 00:00:00 2022-08-09 00:00:00 Outpatient Gilbert_L VFP VFP [id number] [facility] 2022-08-05 00:00:00 2022-08-05 00:00:00 Outpatient Gilbert_L VFP VFP [id number] [facility] 2022-08-04 00:00:00 2022-08-04 00:00:00 Outpatient Gilbert_L VFP VFP [id number] [facility] 2022-08-04 00:00:00 2022-08-04 00:00:00 Mahesh Jaquez, DO: [address], [facility] [address] [address] , Ph. VFP [facility] - [place] ([place]) [id number] [facility] 2022-08-02 00:00:00 2022-08-02 00:00:00 Outpatient Gilbert_L VFP VFP [id number] [facility] 2022-07-16 00:00:00 2022-07-16 00:00:00 Outpatient Gilbert_L VFP VFP [id number] [facility] 2022-06-11 00:00:00 2022-06-11 00:00:00 Outpatient Gilbert_L VFP VFP [id number] [facility] 2022-06-02 00:00:00 2022-06-02 00:00:00 Outpatient GILBERT_L_W AGDNU VFP VFP [id number] [facility] 2022-06-02 00:00:00 2022-06-02 00:00:00 Mahesh Jaquez, DO: [address], [address], [place] [address] , Ph. VFP [place] - [facility] - [place] [id number] [facility] 2022-06-01 00:00:00 2022-06-01 00:00:00 Outpatient Gilbert_L VFP VFP [id number] [facility] 2022-05-07 00:00:00 2022-05-07 00:00:00 Outpatient GILBERT_L_W AGDNU VFP VFP [id number] [facility] 2022-05-05 05:07:00 2022-05-05 05:07:00 Outpatient Gilbert_L VFP VFP [id number] [facility] 2022-05-05 00:00:00 2022-05-05 00:00:00 Mahesh Jaquez, DO: [address], [address], [place] [address] , Ph. [place]FP [place] - [facility] - [place] [id number] [facility] 2022-05-04 03:30:00 2022-05-04 03:30:00 Outpatient Gilbert_L VFP VFP [id number] [facility] 2022-01-16 08:47:00 2022-01-16 08:47:00 Outpatient Gilbert_L VFP VFP [id number] [facility] 2022-01-16 08:47:00 2022-01-16 08:47:00 Outpatient Gilbert_L VFP VFP [id number] [facility] 2022-01-16 08:47:00 2022-01-16 08:47:00 Outpatient GILBERT_L_W AGDNU VFP VFP [id number] [facility] 2022-01-15 07:18:00 2022-01-15 07:18:00 Outpatient Gilbert_L VFP VFP [id number] [facility] 2021-11-14 10:38:00 2021-11-14 10:38:00 Outpatient Gilbert_L VFP VFP [id number] [facility] 2021-11-13 02:57:00 2021-11-13 02:57:00 Outpatient Gilbert_L VFP VFP [id number] [facility] 2021-11-13 00:00:00 2021-11-13 00:00:00 Lissa Mendez, 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 VFP [place] - [facility]_Jay NAVAS) [id number] [facility] 2021-11-12 07:37:00 2021-11-12 07:37:00 Outpatient Gilbert_L VFP VFP [id number] [facility] 2021-10-15 10:27:00 2021-10-15 10:27:00 Outpatient Gilbert_L VFP VFP [id number] [facility] 2021-10-15 10:27:00 2021-10-15 10:27:00 Outpatient Gilbert_L VFP VFP [id number] [facility] 2021-10-15 10:27:00 2021-10-15 10:27:00 Outpatient Gilbert_L VFP VFP [id number] [facility] 2021-10-15 10:27:00 2021-10-15 10:27:00 Outpatient GILBERT_L_W AGDNU VFP VFP [id number] [facility] 2021-10-15 00:00:00 2021-10-15 00:00:00 Mahesh Jaquez, DO: [address], [address], [place] [address] , Ph. [place]FP [place] [facility] [place] ([place]) [id number] [facility] 2021-10-07 06:14:00 2021-10-07 06:14:00 Outpatient Bernstein_H VFP VFP [id number] [facility] 2021-10-07 06:14:00 2021-10-07 06:14:00 Outpatient GILBERT_L_W AGDNU VFP VFP [id number] [facility] 2021-10-07 00:00:00 2021-10-07 00:00:00 Mahesh Jaquez, DO: [address], [address], [place] [address] , Ph. [place] - [facility] - [place] ([facility]) [id number] [facility] 2021-10-06 09:16:00 2021-10-06 09:16:00 Outpatient Bernstein_H VFP VFP [id number] [facility] 2021-10-02 09:51:00 2021-10-02 09:51:00 Outpatient Bernstein_H VFP VFP [id number] [facility] 2021-10-02 09:51:00 2021-10-02 09:51:00 Outpatient GILBERT_L_W AGDNU VFP VFP [id number] [facility] 2021-04-11 05:21:00 2021-04-11 05:21:00 Outpatient GILBERT_L_W AG VFP VFP [id number] [facility] 2021-04-08 12:56:00 2021-04-08 12:56:00 Outpatient GILBERT_L_W AG VFP VFP [id number] [facility] 2021-04-08 00:00:00 2021-04-08 00:00:00 Mahesh Jaquez, DO: [address], [address], [place] [address] , [place]. [place] - [facility] - [place] ([facility]) [id number] [facility] 2021-04-05 10:26:00 2021-04-05 10:26:00 Outpatient GILBERT_L_W AG VFP VFP [id number] [facility] 2021-04-02 11:49:00 2021-04-02 11:49:00 Outpatient GILBERT_L_W AG VFP VFP [id number] [facility] 2021-04-02 00:00:00 2021-04-02 00:00:00 Mahesh Jaquez, DO: [address], [address], [place] [address] , [place]. [place] - [facility] [place] ([place]) [id number] [facility] 2021-03-25 12:31:00 2021-03-25 12:31:00 Outpatient GILBERT_L_W AG VFP VFP [id number] [facility] 2021-03-25 12:31:00 2021-03-25 12:31:00 Outpatient Bernstein_H VFP VFP [id number] [facility] 2021-01-12 03:51:00 2021-01-12 03:51:00 Outpatient Bernstein_H VFP VFP [id number] [facility] 2021-01-09 03:57:00 2021-01-09 03:57:00 Outpatient GILBERT_L_W AG VFP VFP [id number] [facility] 2021-01-08 05:12:00 2021-01-08 05:12:00 Outpatient Bernstein_H _WAG VFP VFP [id number] [facility] 2021-01-08 00:00:00 2021-01-08 00:00:00 Mahesh Jaquez, DO: [address], [address], [place] [address] , [place]. [place]FP [place] - [facility] - [place] ([place]) [id number] [facility] 2021-01-04 02:29:00 2021-01-04 02:29:00 Outpatient Bernstein_H VFP VFP [id number] [facility] 2020-12-03 11:57:00 2020-12-03 11:57:00 Outpatient Bernstein_H VFP VFP [id number] [facility] 2020-11-12 01:03:00 2020-11-12 01:03:00 Outpatient Bernstein_H _WAG VFP VFP [id number] [facility] 2020-10-08 01:02:00 2020-10-08 01:02:00 Outpatient Bernstein_H _WAG VFP VFP [id number] [facility] 2020-09-03 01:02:00 2020-09-03 01:02:00 Outpatient Bernstein_H _WAG VFP VFP [id number] [facility] 2020-07-30 09:13:00 2020-07-30 09:13:00 Outpatient Bernstein_H _WAG VFP VFP [id number] [facility] 2020-07-30 09:13:00 2020-07-30 09:13:00 Outpatient Bernstein_H VFP VFP [id number] [facility] 2020-07-27 10:04:00 2020-07-27 10:04:00 Outpatient Bernstein_H _WAG VFP VFP [id number] [facility] 2020-07-26 12:37:00 2020-07-26 12:37:00 Outpatient Bernstein_H _WAG VFP VFP [id number] [facility] 2020-07-26 00:00:00 2020-07-26 00:00:00 Moreno Borrero MD: [address] [facility], [address], [place] [address] , Ph. [place]FP [place] - [facility] - [place]_SHAHLA_Hardy mccormick (CARLOS MANUEL) [id number] [facility] 2020-07-20 01:25:00 2020-07-20 01:25:00 Outpatient Bernstein_H _WAG VFP VFP [id number] [facility] 2020-07-20 01:25:00 2020-07-20 01:25:00 Outpatient Bernstein_H _WAG VFP VFP [id number] [facility] 2020-07-20 00:00:00 2020-07-20 00:00:00 Moreon Borrero MD: [address], [address] [address] , [place]. [place] - [facility] - [place] ([place]) [id number] [facility] 2020-07-19 04:59:00 2020-07-19 04:59:00 Outpatient Bernstein_H _WAG VFP VFP [id number] [facility] 2020-07-14 03:36:00 2020-07-14 03:36:00 Outpatient Bernstein_H VFP VFP [id number] [facility] 2020-06-27 04:31:00 2020-06-27 04:31:00 Outpatient Bernstein_H _WAG VFP VFP [id number] [facility] 2020-06-27 00:00:00 2020-06-27 00:00:00 Moreno Borrero MD: [address], [address] [address] , [place]. [place] - [facility] - [place] ([place]) [id number] [facility] 2020-03-24 11:29:00 2020-03-24 11:29:00 Outpatient Bernstein_H VFP VFP [id number] [facility] 2020-03-14 06:59:00 2020-03-14 06:59:00 Outpatient Bernstein_H VFP VFP [id number] [facility] 2020-03-05 04:02:00 2020-03-05 04:02:00 Outpatient Bernstein_H _WAG VFP VFP [id number] [facility] 2020-03-01 02:40:00 2020-03-01 02:40:00 Outpatient Bernstein_H _WAG VFP VFP [id number] [facility] 2020-03-01 00:00:00 2020-03-01 00:00:00 Moreno Borrero MD: [address], [place] [address] , Ph. [place]FP [place] - [facility] - [place] ([place]) [id number] [facility] 2019-09-22 00:00:00 2019-09-22 00:00:00 Moreno Borrero MD: [address] [place] [address] , Ph. [place]FP [place] - [facility] - [place] [id number] [facility] 2019-07-04 00:00:00 2019-07-04 00:00:00 Moreno Borrero MD: [address] [place] [address] , Ph. [place] - [facility] - [place] [id number] [facility] 2019-05-26 00:00:00 2019-05-26 00:00:00 Moreno Borrero MD: [address] [place] [address] , [place]. [place] - [facility] - [place] [id number] [facility] 2019-03-09 00:00:00 2019-03-09 00:00:00 Chon Vazquez MD: [address] [place] [address] , [place]. [place] - [facility] - [place] [id number] [facility] 2018-01-07 00:00:00 2018-01-07 00:00:00 Moreno Borrero MD: [address] [place] [address] , [place]. [place] - [facility] - [place] [id number] [facility] 2017-09-04 00:00:00 2017-09-04 00:00:00 Moreno Borrero MD: [address] [place] [address] , [place]. [place] - [facility] - [place] [id number] [facility] 2017-08-31 00:00:00 2017-08-31 00:00:00 Xander Rodriguez MD: [address] [place] [address] , [place]. [place]FP [place] - [facility] - [place] [id number] [facility] 2017-02-05 00:00:00 2017-02-05 00:00:00 Xander Rodriguez MD: [address] [place] [address] , [place]. [place]FP [place] - [facility] - [place] [id number] [facility] 2016-11-10 00:00:00 2016-11-10 00:00:00 Xander Rodriguez MD: [address] [place] [address] , [place]. [place] [facility] - [place] [id number] [facility] 2016-09-03 00:00:00 2016-09-03 00:00:00 Xander Rodriguez MD: [address] [place] [address] , [place]. [place] - [facility] - [place] [id number] [facility] 2016-07-18 00:00:00 2016-07-18 00:00:00 Xander Rodriguez MD: [address] [place] [address] , [place]. [place] - [facility] - [place] [id number] [facility] e Results Test Description Test Time Test Comments Results Result Co mments Source [facility]Mass Ratio] in [id number] 00:00:00* Test Item Value Reference Range Interpretation Comme nts albumin, urine (test code = albumin, urine) 0.2 mg/dL see note: albumin/creatinine ratio, ra ndom urine (test code = albumin/creatinine ratio, random urine) 3 mg/g creat <30 creatinine, random urine (te st code = creatinine, random urine) 78 mg/dL 20-320 [facility] 2000 [facility] - Serum or Plasma 2024-05-23 00:00:00* Test Item Value Reference Range Interpretation Comme nts albumin (test code = albumin) 4.5 g/dL 3.6-5.1 albumin/globulin ratio (test code = albumin/globulin ratio) 1.7 (calc) 1.0-2.5 alkaline phosphatase (test code = alkaline phosphatase) 62 U/L 35-144 ALT (test code = ALT) 10 U/L 9-46 AST (test code = AST) 14 U/L 10-35 bilirubin, total (test code = bilirubin, total) 0.7 mg/dL 0.2-1.2 BUN/creatinine ratio (test code = BUN/creatinine ratio) 13 (calc) 6-22 calcium (test code = calcium) 10.0 mg/dL 8.6-10.3 carbon dioxide (test code = carbon dioxide) 27 mmol/L 20-32 chloride (test code = chloride) 103 mmol/L 98-110 creatinine (test code = creatinine) 1.46 mg/dL 0.70-1.35 H eGFR (test code = eGFR) 52 mL/min/1.73m2 See_Comment L [Automated message] The system which generated this result transmitted reference range: > or = 60. The reference range was not used to interpret this result as normal/abnormal. globulin (test code = globulin) 2.7 g/dL (calc) 1.9-3.7 glucose (test code = glucose) 179 mg/dL 65-99 H potassium (test code = potassium) 3.8 mmol/L 3.5-5.3 protein, total (test code = protein, total) 7.2 g/dL 6.1-8.1 sodium (test code = sodium) 141 mmol/L 135-146 urea nitrogen (BUN) (test code = urea nitrogen (BUN)) 19 mg/dL 7-25 [facility] A1c/Hemoglobin.total in [id number] 00:00:00* Test Item Value Reference Range Interpretation Comme nts EAG (mg/dL) (test code = EAG (mg/dL)) 146 mg/dL EAG (mmol/L) (test code = EAG (mmol/L)) 8.1 mmol/L Hemoglobin A1c/Hemoglobin.total in Blood (test code = 4548-4) 6.7 % of total HGB <5.7 H [facility]Hepatitis [facility] virus Ab [Presence] in Serum or Plasma by [id number] 00:00:00* Test Item Value Reference Range Interpretation Comme nts hepatitis C antibody (test c ode = hepatitis C antibody) NON-REACTIVE non-reactive [facility] 1996 panel - Serum or [id number] 00:00:00* Test Item Value Reference Range Interpretation Comme nts chol/HDLC ratio (test code = chol/HDLC ratio) 2.8 (calc) <5.0 cholesterol, total (test code = cholesterol, total) 148 mg/dL <200 HDL cholesterol (test code = HDL cholesterol) 53 mg/dL See_Comment [Automated [employer]] The system which generated this result transmitted reference range: > or = 40. The reference range was not used to interpret this result as normal/abnormal. LDL-cholesterol (test code = LDL-cholesterol) 72 mg/dL (calc) non HDL cholesterol (test code = non HDL cholesterol) 95 mg/dL (calc) <130 triglycerides (test code = triglycerides) 144 mg/dL <150 [facility] HospitalDodccgsr46-Jbdugmowofiyte D3+25-Hydroxyvitamin D2 [Mass/volume] in Serum or [id number] 00:00:00* Test Item Value Reference Range Interpretation Comme nts vitamin D,25-oh,total,ia (te st code = vitamin D,25-oh,total,ia) 44 NG/mL 30-100 [facility]Creatinine [Mass Ratio] in [id number] 00:00:00* Test Item Value Reference Range Interpretation Comme nts microalbumin random urine (test code = microalbumin random urine) see comment creatinine random urine (test code = creatinine random urine) 35.4 mg/dL 20.0-370.0 microalbumin/creatinine (random urine) ratio calculated (test code = microalbumin/creatinine (random urine) ratio calculated) unable to calculate [facility]Hemoglobin A1c/Hemoglobin.total in [id number] 00:00:00* Test Item Value Reference Range Interpretation Comme nts Hemoglobin A1c/Hemoglobin.to juan in Blood (test code = 4548-4) 9.3 % 1.0-5.7 H average blood glucose (calcu lation) (test code = average blood glucose (calculation)) 220 mg/dL [facility] - Serum or Plasma 2022-05-06 00:00:00* Test Item Value Reference Range Interpretation Comme nts ALT (test code = ALT) 56 U/L 0-55 H AST (test code = AST) 27 U/L 5-34 BUN (test code = BUN) 17.5 mg/dL 8.4-25.0 alk phos (test code = alk phos) 115 unit/L 40-150 glucose (test code = glucose) 281 mg/dL 70-99 H albumin (test code = albumin) 4.5 g/dL 3.4-5.1 creatinine (test code = creatinine) 1.63 mg/dL 0.72-1.25 H eGFR non- (test code = eGFR non-) 42 mL/min/1.73m2 A total bilirubin (test code = total bilirubin) 0.5 mg/dL 0.2-1.2 eGFR - (test code = eGFR - ) 51 mL/min/1.73m2 A sodium (test code = sodium) 136 mEq/L 135-145 potassium (test code = potassium) 3.9 mEq/L 3.5-5.3 chloride (test code = chloride) 97 mmol/L 98-110 L total protein (test code = total protein) 7.6 g/dL 6.1-8.2 calcium (test code = calcium) 10.0 mg/dL 8.8-10.2 CO2 (test code = CO2) 26.5 mmol/L 20.0-32.0 anion gap (test code = anion gap) 13 calc [facility] - Serum or [id number] 00:00:00* Test Item Value Reference Range Interpretation Comme nts HDL (test code = HDL) 44 mg/dL triglyceride (test code = triglyceride) 154 mg/dL <150 H VLDL (calculated) (test code = VLDL (calculated)) 31 mg/dL cholesterol/HDL ratio (test code = cholesterol/HDL ratio) 3.0 mg/dL non-HDL cholesterol (calcula ignacio) (test code = non-HDL cholesterol (calculated)) 89 mg/dL <160 cholesterol (test code = cholesterol) 133 mg/dL <200 Cholesterol in LDL [Mass/vol ume] in Serum or Plasma (test code = 2089-1) 58 mg/dL <130 [facility] Ratio] in [id number] 18:58:00* Test Item Value Reference Range Interpretation Comme nts microalbumin random urine (test code = microalbumin random urine) 7 ug/mL creatinine random urine (cliff t code = creatinine random urine) 108.8 mg/dL 20.0-370.0 microalbumin/creatinine (random urine) ratio calculated (test code = microalbumin/creatinine (random urine) ratio calculated) 6 mcg/mg creat [facility] 1999 [facility] - Serum or Plasma 2021-04-03 09:30:00* Test Item Value Reference Range Interpretation Comme nts ALT (test code = ALT) 21 U/L 0-55 AST (test code = AST) 21 U/L 5-34 BUN (test code = BUN) 11.4 mg/dL 8.4-25.0 alk phos (test code = alk phos) 69 unit/L 40-150 glucose (test code = glucose) 119 mg/dL 70-99 H albumin (test code = albumin) 4.4 g/dL 3.4-5.1 creatinine (test code = creatinine) 1.18 mg/dL 0.72-1.25 eGFR non- (t est code = eGFR non-) >60 total bilirubin (test code = total bilirubin) 0.9 mg/dL 0.2-1.2 eGFR - (cliff t code = eGFR - ) >60 sodium (test code = sodium) 139 mEq/L 135-145 potassium (test code = potassium) 4.1 mEq/L 3.5-5.3 chloride (test code = chloride) 103 mmol/L 98-110 total protein (test code = t otal protein) 7.3 g/dL 6.1-8.2 calcium (test code = calcium) 9.8 mg/dL 8.8-10.2 CO2 (test code = CO2) 27.6 mmol/L 20.0-32.0 anion gap (test code = anion gap) 8 calc [facility] - Serum or [id number] 09:30:00* Test Item Value Reference Range Interpretation Comme nts HDL (test code = HDL) 48 mg/dL triglyceride (test code = triglyceride) 60 mg/dL <150 VLDL (calculated) (test code = VLDL (calculated)) 12 mg/dL cholesterol/HDL ratio (test code = cholesterol/HDL ratio) 3.1 mg/dL non-HDL cholesterol (calcula ignacio) (test code = non-HDL cholesterol (calculated)) 99 mg/dL <160 cholesterol (test code = cholesterol) 147 mg/dL <200 Cholesterol in LDL [Mass/vol ume] in Serum or Plasma (test code = 2089-1) 87 mg/dL <130 [facility]/Hemoglobin.total in [id number] 17:50:00* Test Item Value Reference Range Interpretation Comme nts Hemoglobin A1c/Hemoglobin.to juan in Blood (test code = 4548-4) 6.8 % 1.0-5.7 H average blood glucose (calcu lation) (test code = average blood glucose (calculation)) 148 mg/dL [facility] 1999 [facility] - Serum or Plasma 2017-09-08 11:09:00* Test Item Value Reference Range Interpretation Comme nts ALT (test code = ALT) 26 U/L 0-55 AST (test code = AST) 22 U/L 5-34 BUN (test code = BUN) 11.5 mg/dL 8.4-25.7 alk phos (test code = alk phos) 70 unit/L 40-150 glucose (test code = glucose) 212 mg/dL 70-99 H albumin (test code = albumin) 4.0 g/dL 3.5-5.0 creatinine (test code = creatinine) 1.07 mg/dL 0.72-1.25 eGFR non- (t est code = eGFR non-) >60 >60 total bilirubin (test code = total bilirubin) 0.5 mg/dL 0.2-1.2 eGFR - (cliff t code = eGFR - ) >60 >60 sodium (test code = sodium) 137 mEq/L 136-145 potassium (test code = potassium) 3.8 mEq/L 3.5-5.1 chloride (test code = chloride) 101 mmol/L 98-107 total protein (test code = t otal protein) 7.3 g/dL 6.4-8.3 calcium (test code = calcium) 9.5 mg/dL 8.8-10.0 CO2 (test code = CO2) 25.9 mmol/L 23.0-31.0 anion gap (test code = anion gap) 10 calc [facility] - Serum or [id number] 11:09:00* Test Item Value Reference Range Interpretation Comme [facility] HDL (test code = HDL) 49 mg/dL 40-60 triglyceride (test code = triglyceride) 106 mg/dL 0-149 VLDL calc. (test code = VLDL calc.) 21 mg/dL cholesterol/HDL ratio (test code = cholesterol/HDL ratio) 3.8 mg/dL non-HDL cholesterol calc. (t est code = non-HDL cholesterol calc.) 137 mg/dL 0-160 cholesterol (test code = cholesterol) 186 mg/dL 0-199 LDL calc. (test code = LDL calc.) 116 mg/dL 0-130 [facility]/Hemoglobin.total in [id number] 18:11:00* Test Item Value Reference Range Interpretation Comme [facility] A1C w/EAG (test code = A1C w/EAG) 7.2 % 1.0-5.7 H average blood glucose (test code = average blood glucose) 160 mg/dL [facility] A[facility]/Hemoglobin.total in [id number] 16:47:00* Test Item Value Reference Range Interpretation Comme [facility] A1C w/EAG (test code = A1C w/EAG) 6.7 % 1.0-5.7 H average blood glucose (test code = average blood glucose) 146 mg/dL [facility] 1999 panel - Serum or Plasma 2016-11-11 16:44:00* Test Item Value Reference Range Interpretation Comme nts ALT (test code = ALT) 27 U/L 0-55 AST (test code = AST) 22 U/L 5-34 BUN (test code = BUN) 14 mg/dL 8-26 alk phos (test code = alk phos) 95 unit/L 40-150 glucose (test code = glucose) 138 mg/dL 70-99 H albumin (test code = albumin) 4.4 g/dL 3.5-5.0 creatinine (test code = creatinine) 1.17 mg/dL 0.72-1.25 eGFR non- (t est code = eGFR non-) >60 >60 total bilirubin (test code = total bilirubin) 0.6 mg/dL 0.2-1.2 eGFR - (cliff t code = eGFR - ) >60 >60 sodium (test code = sodium) 140 mEq/L 137-144 potassium (test code = potassium) 3.8 mEq/L 3.5-5.0 chloride (test code = chloride) 102 mmol/L 101-110 total protein (test code = t otal protein) 7.9 g/dL 6.4-8.3 calcium (test code = calcium) 10.2 mg/dL 8.4-10.2 CO2 (test code = CO2) 27 mmol/L 22-31 anion gap (test code = anion gap) 11 calc [facility] - Serum or [id number] 16:44:00* Test Item Value Reference Range Interpretation Comme nts HDL (test code = HDL) 44 mg/dL 40-60 triglyceride (test code = triglyceride) 143 mg/dL 0-149 VLDL calc. (test code = VLDL calc.) 29 mg/dL cholesterol/HDL ratio (test code = cholesterol/HDL ratio) 3 mg/dL non-HDL cholesterol calc. (t est code = non-HDL cholesterol calc.) 104 mg/dL 0-160 cholesterol (test code = cholesterol) 148 mg/dL 0-199 LDL calc. (test code = LDL calc.) 75 mg/dL 0-130 [facility]
[2025-02-28] MEDS ORDERED: ONDANSETRON 4 MG/2 ML VIAL ONE (18:47)
[2025-02-28] MEDS ORDERED: CEFAZOLIN SODIUM 1 GM/VIAL ONE (18:48)
[2025-02-28] MEDS ORDERED: MORPHINE 4 MG/ML SYR ONE (18:48)
[2025-02-28] MEDS ORDERED: NA CHLORIDE 0.9% 1,000 ML ONE (18:48)
[2025-02-28] MEDS ORDERED: NA CHLORIDE 0.9% 50 ML ONE (18:49)
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
[2025-02-28 20:10] VITALS: BP 153/76; TEMP 98.1; O2SAT 99
== END 2025-02-28 20:05 | disposition home or self-care (01) ==
LOC: ER 18:02
DX: T23.261A Burn of second degree of back of right hand, initial encounter (principal); T22.211A Burn of second degree of right forearm, initial encounter; T24.221A Burn of second degree of right knee, initial encounter; X08.8XXA Exposure to other specified smoke, fire and flames, initial encounter
CPT/HCPCS: 96365; 96375; 99284; J2405; J7030; J0690